=== PATIENT | female | born 1985 | race Caucasian/White ===

== ENCOUNTER 2016-06-23 09:14 | Day surgery (SDC) | payer OTHER ==
[~2016-06-23] VITALS: Ht 157.5 cm; Wt 62.3 kg
[2016-06-23] VITALS (11 sets, daily range): BP systolic 106–121; BP diastolic 59–76; PULSE 76–90; RESP 14–18; Ht 157.5 cm; Wt 62.3 kg
[~2016-06-23 09:14] MED LIST: THROMBIN(HUM PLAS)/FIBRINOG/CA 5 ML VIAL TOP ONE
[2016-06-23] MEDS ORDERED: LISI20TA11 PO (10:13)
[2016-06-23] MEDS ORDERED: MTF1000T PO (10:13)
--- NOTE | 2016-06-23 10:29 | RADRPT ---
PROCEDURE: XR Chest. CLINICAL INDICATION: Preoperative TECHNIQUE: Single frontal view of the chest was obtained COMPARISON: None FINDINGS: The heart and mediastinum are within normal limits. The lungs are clear. There is no pleural effusion or pneumothorax. RPTAT: AA IMPRESSION: No acute disease. .Meño Flood MD, Date Time Electronically viewed and signed by .Meño Flood MD, on 06/23/2016 10:29 .S/
[2016-06-23] MEDS ORDERED: MIDAZOLAM 1 MG/ML 2 ML INJ IV PRN (11:00)
[2016-06-23] MEDS ORDERED: hydrALAzine 20 MG INJ IV PRN (11:00)
[2016-06-23] MEDS ORDERED: EPHEDrine SULFATE 50 MG/5 ML SYG IV PRN (11:00)
[2016-06-23] MEDS ORDERED: ATROPINE 1 MG/10 ML SYRINGE IV PRN (11:00)
[2016-06-23] MEDS ORDERED: FENTAnyl 50 MCG/ML VIAL IV PRN ×2 (11:00)
[2016-06-23] MEDS ORDERED: ONDANSETRON 4 MG INJ IV PRN ×2 (11:00→12:00)
[2016-06-23] MEDS ORDERED: DIPHENHYDRAMINE 50 MG INJ IV PRN (11:00)
[2016-06-23] MEDS ORDERED: LABETALOL HCL 20MG INJ IV PRN (11:00)
[2016-06-23] MEDS ORDERED: morphine (1 MG/ML) 10ML SYRINGE IV PRN ×3 (11:00)
[2016-06-23] MEDS ORDERED: MEPERIDINE 25 MG INJ IV PRN (11:00)
[2016-06-23] MEDS ORDERED: OXYCODONE/ACETAMINOPHEN (5/325) TAB PO PRN ×4 (11:00→12:00)
[2016-06-23] MEDS ORDERED: HYDROmorphONE (0.2 MG/ML) 10ML SYG IV PRN ×2 (11:00)
[2016-06-23] MEDS ORDERED: ROCURONIUM 50 MG INJ ONE (11:01)
[2016-06-23] MEDS ORDERED: LIDOCAINE 2% (SDV) 5 ML INJ ONE (11:01)
[2016-06-23] MEDS ORDERED: FENTAnyl 50 MCG/ML VIAL ONE (11:01)
[2016-06-23] MEDS ORDERED: MIDAZOLAM 1 MG/ML 2 ML INJ ONE (11:01)
[2016-06-23] MEDS ORDERED: PROPOFOL 20 ML ONE (11:01)
[2016-06-23] MEDS ORDERED: GLYCOPYRROLATE 0.4 MG INJ ONE (11:01)
[2016-06-23] MEDS ORDERED: NEOSTIGMINE 3 MG/3 ML SYRINGE ONE (11:01)
[2016-06-23] MEDS ORDERED: ROPIVACAINE 0.5 % 30 ML VIAL ONE ×3 (11:02→12:01)
[2016-06-23] MEDS ORDERED: SUCCINYLCHOLINE CHLORIDE 100 MG/5 ML SYG IV ONE (11:02)
[2016-06-23] MEDS ORDERED: CEFAZOLIN 1 GM INJ ONE (11:11)
[2016-06-23] MEDS ORDERED: SOD CHLORIDE 0.9% 1,000 ML IV SCH (11:40)
--- NOTE | 2016-06-23 11:40 | HPN ---
Date/Time of Note Date/Time of Note DATE: 06/23/16 TIME: 11:40 Interval H&P Admission Note Pt. seen H&P reviewed: No system changes CASH JIMENEZ MD Jun 23, 2016 11:40
[2016-06-23] MEDS ORDERED: morphine 2 MG INJ IV PRN (12:00)
[2016-06-23] MEDS ORDERED: POVIDONE IODINE 10% 28.4 GM OINT ONE (12:01)
[2016-06-23] MEDS ORDERED: ONDANSETRON 4 MG INJ ONE (12:05)
[2016-06-23] MEDS ORDERED: DEXAMETHASONE 4 MG/ML 1 ML INJ ONE (12:05)
[2016-06-23] MEDS ORDERED: LIDOCAINE 100 MG SYRINGE ONE (12:39)
[2016-06-23] MEDS: HYDROmorphONE (0.2 MG/ML) 10ML SYG IV PRN ×3 (15:49→16:10)
--- NOTE | 2016-06-23 17:58 | RADRPT ---
Vent Rate: 73 bpm RR Interval: 0 msec [place] Interval: 140 msec QRS Duration: 78 msec QT Interval: 406 msec QTC Interval: 447 msec P-R-T [place]: 0 - 149 - 151 degrees Suspect arm lead reversal, interpretation assumes no reversal Normal sinus rhythm Lateral infarct , age undetermined Possible Inferior infarct , age undetermined Abnormal ECG Electronically Signed By: Terrell Florez [id number]
--- NOTE | 2016-06-25 01:05 | OPR ---
DATE OF OPERATION: 06/23/2016 PREOPERATIVE DIAGNOSES: 1. Osteochondral lesion on the mediolateral talar dome, left ankle. 2. Synovitis, scarring and adhesions. POSTOPERATIVE DIAGNOSES: 1. Unstable osteochondral lesion, medial talar dome, left ankle, 12 x 3 mm. 2. Unstable osteochondral lesion, lateral talar dome, 10 x 5 mm. 3. Synovitis, scar tissue and adhesions, left ankle. OPERATION PERFORMED: 1. Arthroscopy of left ankle with soft-tissue distraction. 2. Excision of osteochondral lesion, medial talar dome. 3. Drilling and microfracture, osteochondral lesion, medial talar dome. 4. Excision of osteochondral lesion, lateral talar dome. 5. Drilling and microfracture, osteochondral lesion, lateral talar dome. 6. Insertion. 7. Extensive debridement in the ankle. 8. Open insertion, particularly of juvenile cartilage, into the medial and lateral osteochondral le sions of the talus. 9. Short leg splint. SURGEON: Cash Jimenez MD CARVER AND CHECKERER SPECIALS: Endy Castano MD ANESTHESIA: General with popliteal block. TOURNIQUET TIME: 77 minutes. DESCRIPTION OF PROCEDURE: The patient taken to the operating room, placed in supine position. Sati sfactory popliteal block was given, satisfactory general anesthesia administered, 1 gram Ancef given intravenously. The left thigh secured in the thigh frances. Arms were carefully padded. Left leg was prepped and draped in usual manner. Superficial peroneal nerve was marked out. The ankle was d istracted with noninvasive distractor. Standard anteromedial, anterolateral and ____ ports used, us ing extreme caution to avoid injuring neurovascular structures. There was extensive scar tissue, sy novitis through the medial gutter, distal tibia and lateral gutter. Ankle was fairly tight. Shaver was inserted, and the medial gutter was debrided, soft tissue peeled off the distal tibia, lateral gutter and anterior gutters. There was an unstable osteochondral lesion in the medial talar dome on the shoulder with a flap that was loose in the medial gutter. Centrally it was smooth and glisteni ng anteriorly, centrally and posteriorly. Laterally, there was an osteochondral lesion, anterolater al talar dome that was unstable. There was synovitis and scarring posteriorly which was debrided. After complete debridement, our attention was turned to the osteochondral lesion. The medial osteochondral lesion was freed up with different-angled curettes and removed with a grasp er. Sharp margins 90 degrees were made circumferentially on the dome of the talus and then on the s houlder on the medial talar wall. Once a stable rim had been achieved and measured 12 x 3 mm, multi ple microfracture holes were placed, and then 0.045 K-wire was percutaneously inserted. Foot was pl ana maría flexed, and multiple drill holes were made. The lateral osteochondral lesion was excised with different angled curettes. Sharp 90-degree vertic al beach were made. The lesion did not extend over the shoulder. Keratinous shaver used to remove all debris to good, healthy bone. Multiple microfracture holes were made and then percutaneously. Multiple drill holes were made with 0.045 K-wire. The particulated juvenile cartilage was then opened. All the fluid was removed. Fibrin glue was pr epared. Portion of the particulated juvenile cartilage was placed in a cannula. All the water was sucked out of the ankle. Q-tips were used to dry the medial and lateral osteochondral lesions. Thi s procedure was then done dry. Using the fibrin glue, the fibrin glue was inserted on the medial osteochondral lesion, just a few d rops in the bed. Then using a cannula, particulated juvenile cartilage cells were inserted and then using a K-wire gently placed onto the lesion and impacted with a [place] elevator. Additional fibrin glue was then used to seal the cells in the lesion. More cells were placed in the cannula. Fibrin glue was placed in the lateral osteochondral lesion bed, a few drops, and the cells were inserted a nd impacted with a [place] elevator and then sealed with more fibrin glue. We waited 5 minutes, then moved the ankle up and down, and it was stable. It should be noted that the medial and lateral oste ochondral lesions were approached by extending our incisions, and then the fibrin glue and the cells were inserted. The wounds were then irrigated clear with antibiotic solution. The portals were cl osed with 4-0 black nylon interrupted. Saphenous nerve block was done with 0.5% ropivacaine. Compr ession dressing was applied. The patient brought to the recovery room in a posterior splint in neut ral position. Interprocedure sponge and needle count was correct. The patient doing well. Dictated By: CASH JIMENEZ MD RF/CHELA Conf#: [id number] DID#: [id number]
== END 2016-06-23 17:19 | disposition home or self-care (01) ==
LOC: SDS 09:14
PROVIDERS: ATTEND Orthopaedic Surgery
DX: M93.272 Osteochondritis dissecans, left ankle and joints of left foot (principal); M65.872 Other synovitis and tenosynovitis, left ankle and foot; E11.9 Type 2 diabetes mellitus without complications
CPT/HCPCS: 29891; 29892; 71010; 82962; 84703; 93005; C1713; C9250; J0690; J1100; J1170; J2250; J2405; J2710; J2795; J3010; J0330; J2001